=== PATIENT | male | born 1940 | race Caucasian/White ===

== ENCOUNTER → 2021-04-12 | Day surgery (SDC) | payer MEDICARE, OTHER ==
--- NOTE | 2021-04-11 20:41 | NUR ---
LEFT MESSAGE ON VM IN REGARDS TO PRE PROCEDURE INSTRUCTIONS
[2021-04-12] VITALS (7 sets, daily range): BP systolic 116–143; BP diastolic 79–99; PULSE 56–98; TEMP 98.2
[~2021-04-12] VITALS: Ht 183 cm; Wt 108.0 kg
[~2021-04-12] MED LIST: ASPIRIN E.C. 8181 MG PO; BETAPACE 120MG120 MG PO; BETAPACE160 MG PO; ELIQUIS 5MG PO; GLUCOSAMINE & C1 CA2 PO; HCTZ 25MG TAB25 MG PO; MOBIC15 MG PO; NEURONTIN300 MG/CAP PO; PRAVACHOL 20MG20 MG PO; PROTONIX 40MG T40 MG PO; SYNTHROID0.088 MG/T PO; TYLENOL 8 HR PO; VITAMIN A10k PO; VITAMIN D31000 I1 PO; VITAMINC1000TA PO
--- NOTE | 2021-04-12 07:30 | NUR ---
PT ARRIVED TO [facility]. PT PLACED IN ROOM 12. EKG DONE SHOWING AFIB. VSS. PT CHANGED TO GOWN. IV PLACED AND LABS DRAWN. MED HISTORY REVIEWED.
[2021-04-12 07:32] LABS: HEMATOCRIT 48.2 % (42.0-52.0); HEMOGLOBIN 15.2 g/dl (13.5-18.0); MEAN CELL VOLUME 83 fl (80.0-100.0); MEAN CORPUSCULAR HEMOGLOBIN 26 pg (27.0-31.0); MEAN CORPUSCULAR HGB CONC 32 g/dl (33.0-37.0); MEAN PLATELET VOLUME 8.5 fl (7.4-10.4); PLATELET COUNT 191 K/mm3 (130-400); RED BLOOD COUNT 5.81 M/mm3 (4.20-5.60); REDCELL DISTRIBUTION WIDTH-CV 16.1 % (11.5-14.5)
[2021-04-12 07:43] LABS: CREATININE, serum 1.05 (0.66-1.25); POTASSIUM 4.1 mmol/L (3.4-5.0)
[2021-04-12 07:44] LABS: INR 1.2 (0.8-3.0); PROTHROMBIN TIME 12.8 SECONDS (9.7-12.8)
[2021-04-12 07:46] LABS: PARTIAL THROMBOPLASTIN TIME 35.9 SECONDS (26.0-37.0)
[2021-04-12 08:14] LABS: THYROID STIMULATING HORMONE 2.07 uIU/mL (0.465-4.680)
--- NOTE | 2021-04-12 11:00 | NUR ---
DISCHARGE INSTRUCTIONS DISCUSSED WITH PT. ALL QUESTIONS ANSWERED. IV AND TELE DC'D. PT DRESSED AND WHEELED OUT FOR DISCHARGE.
== END ==
LOC: COL.CAR 06:48
PROVIDERS: Internal Medicine Cardiovascular Disease
DX: I48.0 Paroxysmal atrial fibrillation (principal); I25.10 Atherosclerotic heart disease of native coronary artery without angina pectoris; I10 Essential (primary) hypertension; G47.33 Obstructive sleep apnea (adult) (pediatric); D75.1 Secondary polycythemia; E78.5 Hyperlipidemia, unspecified; K21.9 Gastro-esophageal reflux disease without esophagitis; M19.90 Unspecified osteoarthritis, unspecified site; E03.9 Hypothyroidism, unspecified; G89.29 Other chronic pain; M54.9 Dorsalgia, unspecified; Z99.89 Dependence on other enabling machines and devices; Z95.1 Presence of aortocoronary bypass graft; Z79.82 Long term (current) use of aspirin; Z79.890 Hormone replacement therapy; Z79.899 Other long term (current) drug therapy
CPT/HCPCS: J2704